=== PATIENT | female | born 1995 | race American Indian/Alaskan Native ===

== ENCOUNTER 2017-12-08 03:52 | Inpatient (IN) | payer MEDICAID, OTHER ==
[2017-12-08] MEDS ORDERED: BRETHINE SUB-Q PRN ×2 (06:27→09:00)
[2017-12-08] MEDS ORDERED: XYLOCAINE 2% INFILTRATI ONE (06:27)
[2017-12-08] MEDS ORDERED: MINERAL OIL PO PRN ×2 (06:27→08:30)
[2017-12-08] MEDS ORDERED: STADOL IV PRN (06:27)
[2017-12-08] MEDS ORDERED: POLYCILLIN/NS 2 GM/100 ML 2 GM/100 ML BAG IV ONE (06:27)
[2017-12-08] MEDS ORDERED: BRETHINE IVP PRN ×2 (06:27→08:30)
[2017-12-08] MEDS ORDERED: ePHEDrine SULFATE IV PRN ×3 (06:27→09:01)
[2017-12-08] MEDS ORDERED: PITOCin/NS 20 UNIT/1000ML DRIP 20 UNITS/1,000 ML BAG IV SCH ×3 (07:00→17:00)
[2017-12-08 07:24] LABS: Mean Corpuscular HGB Conc 29 % (30-34); Platelet Count 173 K/mm3 (140-440); Red Blood Count 3.98 M/mm3 (3.65-5.03)
[2017-12-08 07:36] LABS: Amphetamine Screen,Urine PRESUMPTIVE NEGATIVE; Benzodiazepines Screen,Urine PRESUMPTIVE NEGATIVE; Cannabinoid Screen,Urine PRESUMPTIVE NEGATIVE; Cocaine Screen,Urine PRESUMPTIVE NEGATIVE; Methadone Screen,Urine PRESUMPTIVE NEGATIVE; Opiate Screen,Urine PRESUMPTIVE NEGATIVE
[2017-12-08] MEDS: NORMOSOL-R PH 7.4 1,000 ML IV SCH ×3 (07:36→18:00)
[2017-12-08 07:37] LABS: Hemoglobin 7.6 gm/dl (10.1-14.3); Mean Corpuscular Hemoglobin 19 pg (28-32); Mean Corpuscular Volume 65 fl (79-97); Red Cell Distribution Width 20.2 % (13.2-15.2)
--- NOTE | 2017-12-08 07:55 | History and Physical Report ---
History of Present Illness Date of examination: 12/08/17 Date of admission: 12/08/17 06:45 Chief complaint: Labor History of present illness: Pt is a 22yo BF EDC 12/06/17; EGA 40 2/7 weeks presents to L&D complaining of a RUC's q 3-4 mins. She did not receive care with this , but care was unremarkable. Past History Past Medical History: no pertinent history Past Surgical History: no surgical history [employer] History: chlamydia, gonorrhea Family/Genetic History: none Social history: no significant social history, single - Obstetrical History Expected Date of Delivery: 12/06/17 Actual Gestation: 40 Week(s) 2 Day(s) : 4 Medications and Allergies Allergies Allergy/AdvReac Type Severity Reaction Status Date / Time No Known Allergies Allergy Verified 01/07/17 07:59 Home Medications Medication Instructions Recorded Confirmed Last Taken Type Vit Calc,Iron,Folic 1 tab PO DAILY 01/07/17 12/08/17 12/07/17 09:00 History [ Vitamins] Active Meds: Active Medications Butorphanol Tartrate (Stadol) 2 mg IV Q2H PRN PRN Reason: Pain , Severe (7-10) Last Admin: 12/08/17 07:34 Dose: 2 mg Ephedrine Sulfate (Ephedrine Sulfate) 10 mg IV Q2M PRN PRN Reason: Hypotension Parenteral Electrolytes (Normosol-R Ph 7.4) 1,000 mls @ 125 mls/hr IV DIRECT RENEE Last Admin: 12/08/17 07:36 Dose: 125 mls/hr Oxytocin/Sodium Chloride (Pitocin/Ns 20 Unit/1000ml Drip) 20 units in 1,000 mls @ 125 mls/hr IV DIRECT RENEE Ampicillin Sodium (Ampicillin/Ns 1 Gm/50 Ml) 1 gm in 50 mls @ 100 mls/hr IV Q4H RENEE; Protocol Mineral Oil (Mineral Oil) 30 ml PO QHS PRN PRN Reason: Constipation Terbutaline Sulfate (Brethine) 0.25 mg SUB-Q ONCE PRN PRN Reason: Hyperstimulation/Hypertonicity Terbutaline Sulfate (Brethine) 0.25 mg IVP ONCE PRN PRN Reason: Hyperstimulation/Hypertonicity Review of Systems All systems: negative - Vital Signs Vital signs: Vital Signs Pulse Pulse Ox 91 H 100 12/08/17 04:13 12/08/17 04:13 Temp Pulse Resp BP Pulse Ox 98.9 F 113 H 18 114/74 98 12/08/17 04:16 12/08/17 07:52 12/08/17 04:16 12/08/17 07:48 12/08/17 07:52 - Physical Exam Breasts: Positive: deferred Cardiovascular: Regular rate Lungs: Positive: Clear to auscultation Abdomen: Positive: normal appearance, soft Genitourinary (Female): Positive: normal external genitalia Vagina: Positive: normal moisture Uterus: Positive: enlarged Extremities: Positive: normal - Obstetrical FHR: category 1 Uterine Contraction Monitor Mode: External Cervical Dilatation: 4.5 (per nurse) Cervical Effacement Percentage: 60 (per nurse) station: -2 Uterine Contraction Pattern: Regular Uterine Tone Measurement Phase: Contraction Uterine Contraction Intensity: Moderate Results Result Diagrams: 12/08/17 06:40 Abnormal lab results 12/08/17 Range/Units 06:40 WBC 12.4 H (4.5-11.0) K/mm3 Hgb 7.6 L (10.1-14.3) gm/dl Hct 26.0 L (30.3-42.9) % MCV 65 L (79-97) fl MCH 19 L (28-32) pg MCHC 29 L (30-34) % RDW 20.2 H (13.2-15.2) % All other labs normal. Assessment and Plan - Patient Problems (1) 40 weeks gestation of Onset Date: 12/08/17 Current Visit: No Status: Acute Plan to address problem: A: IUP @ 40 2/7 weeks in labor No care Anemia Unknown GBS P: Admit to L&D for expectant vaginal delivery IV Ampicillin (2) Anemia affecting Onset Date: 12/08/17 Current Visit: No Status: Acute Qualifiers: Trimester: third trimester Qualified Code(s): O99.013 - Anemia complicating , third trimester (3) No care in current Onset Date: 12/08/17 Current Visit: No Status: Acute
[2017-12-08] MEDS ORDERED: SUBLIMAZE IV PRN ×2 (07:59→09:00)
[2017-12-08] MEDS ORDERED: ZOFRAN IV PRN ×2 (08:30→16:39)
[2017-12-08] MEDS ORDERED: NARCAN 0.4 MG/1 ML IV PRN (08:30)
[2017-12-08] MEDS ORDERED: PITOCin/NS 30 UNIT/500ML 30 UNITS/500 ML BAG IV SCH (08:30)
[2017-12-08] MEDS ORDERED: NORMOSOL-R PH 7.4 1,000 ML IV SCH (08:30)
[2017-12-08] MEDS ORDERED: XYLOCAINE 2% INFILTRATI NR (09:00)
[2017-12-08] MEDS ORDERED: NARCAN 2 MG/2 ML IV PRN (09:01)
--- NOTE | 2017-12-08 09:01 | Anesthesia Consultation ---
Anesthesia Consult and Med Hx Date of service: 12/08/17 - Airway Anesthetic Teeth Evaluation: Good ROM Head & Neck: Adequate Mental/Hyoid Distance: Adequate Mallampati Class: Class II Intubation Access Assessment: Probably Good - Pre-Operative Health Status ASA Pre-Surgery Classification: ASA2 - Pulmonary Hx Smoking: Yes Hx Asthma: No COPD: No Hx Pneumonia: No - Cardiovascular System Hx Hypertension: No - Central Nervous System Hx Seizures: No Hx Psychiatric Problems: No - Endocrine Hx Renal Disease: No Hx End Stage Renal Disease: No Hx Hypothyroidism: No Hx Hyperthyroidism: No - Hematic Hx Anemia: No Hx Sickle Cell Disease: No - Other Systems Hx Alcohol Use: No
[2017-12-08] MEDS ORDERED: fentaNYL-BUPIV 2 MCG/ML-0.125% 200 MCG/100 ML BAG EPIDURAL SCH (10:00)
[2017-12-08] MEDS ORDERED: AMPICILLIN/NS 1 GM/50 ML 1 GM/50 ML BAG IV SCH (12:00)
--- NOTE | 2017-12-08 16:38 | Procedure Note ---
OB Delivery Note - Delivery Date of Delivery: 12/08/17 Surgeon: THERESA MCCRACKEN Estimated blood loss: 100cc - Vaginal Delivery presentation: vertex Delivery position: OA Intrapartum events: no care Delivery induction: none Delivery augmentation: rupture of membranes, pitocin Delivery monitor: external FHT, external uterine Route of delivery: Delivery placenta: spontaneous Delivery cord: 3 umbilical vessels Episiotomy: none Delivery laceration: none Anesthesia: epidural Delivery comments: delivered and placed on Mom's chest for [id number] bonding and delayed cord clamping. - Infant A at 1 minute: 8 at 5 minutes: 9 Gender: Male (3552gms)
[2017-12-08] MEDS ORDERED: MILK OF MAGNESIA PO PRN (16:39)
[2017-12-08] MEDS ORDERED: BENADRYL PO PRN (16:39)
[2017-12-08] MEDS ORDERED: LANSINOH TP PRN (16:39)
[2017-12-08] MEDS ORDERED: TUCKS PAD TP PRN (16:39)
[2017-12-08] MEDS ORDERED: PHENERGAN PR PRN (16:39)
[2017-12-08] MEDS ORDERED: TYLENOL PO PRN (16:39)
[2017-12-08] MEDS ORDERED: PHENERGAN PO PRN (16:39)
[2017-12-08] MEDS ORDERED: DULCOLAX PR PRN (16:39)
[2017-12-08] MEDS ORDERED: SODIUM CHLORIDE FLUSH SYRINGE 10 ML IV SCH (17:00)
[2017-12-08] MEDS: MOTRIN PO SCH (19:15)
[2017-12-08] MEDS: COLACE PO SCH (21:42)
[2017-12-08] MEDS: FEOSOL PO SCH (21:43)
[2017-12-09] MEDS: MOTRIN PO SCH ×5 (01:07→23:16)
[2017-12-09] MEDS: NORCO 5/325 PO PRN ×2 (01:07→08:45)
[2017-12-09] MEDS ORDERED: BOOSTRIX IM ONE (06:00)
[2017-12-09 07:02] LABS: Hematocrit 23.3 % (30.3-42.9); Hemoglobin 6.9 gm/dl (10.1-14.3)
--- NOTE | 2017-12-09 08:30 | Progress Note ---
Assessment and Plan - Patient Problems (1) 40 weeks gestation of Onset Date: 12/08/17 Current Visit: No Status: Resolved (2) Anemia affecting Onset Date: 12/08/17 Current Visit: No Status: Chronic Qualifiers: Trimester: third trimester Qualified Code(s): O99.013 - Anemia complicating , third trimester (3) No care in current Onset Date: 12/08/17 Current Visit: No Status: Resolved (4) (normal spontaneous vaginal delivery) Onset Date: 12/09/17 Current Visit: Yes Status: Resolved Plan to address problem: A: S/P - PPD #1 Doing well Asymptomatic anemia - stable P: May go home tomorrow. Subjective - Subjective Date of service: 12/09/17 Principal diagnosis: s/p - PPD #1 Interval history: Pt is feeling well without complaints. Bleeding improved. Denies dizziness or SOB. Patient reports: appetite normal, voiding normally, pain well controlled, flatus , ambulating normally, no dizzy ambulation, no nauseated [place]: doing well, nursing well Objective - Vital Signs Latest vital signs: Vital Signs Temp Pulse Resp BP BP Pulse Ox 12/09/17 00:00 98.5 F 92 H 18 125/70 12/08/17 18:45 98.7 F 90 16 116/75 12/08/17 17:43 85 99 12/08/17 17:41 96 H 123/70 12/08/17 17:38 83 99 12/08/17 17:33 86 100 12/08/17 17:28 77 99 12/08/17 17:25 81 129/82 12/08/17 17:23 100 H 98 12/08/17 17:20 77 L 12/08/17 17:17 82 100 12/08/17 17:13 93 H 81 L 12/08/17 17:12 87 99 12/08/17 17:10 93 H 128/79 12/08/17 17:07 95 H 100 12/08/17 17:03 87 78 L 12/08/17 16:57 95 H 100 12/08/17 16:55 90 123/79 12/08/17 16:53 86 100 12/08/17 16:48 101 H 99 12/08/17 16:42 90 100 03/19/18 16:38 103 H 100 03/19/18 16:33 78 87 03/19/18 16:28 82 99 03/19/18 16:23 89 100 03/19/18 16:17 92 H 100 03/19/18 16:12 92 H 100 03/19/18 16:08 93 H 100 03/19/18 16:03 105 H 100 03/19/18 15:58 81 100 03/19/18 15:53 111 H 100 03/19/18 15:47 94 H 100 03/19/18 15:43 82 100 03/19/18 15:37 87 100 03/19/18 15:32 77 100 03/19/18 15:28 88 100 03/19/18 15:23 74 100 03/19/18 15:18 73 100 03/19/18 15:12 82 100 03/19/18 15:07 97 H 100 03/19/18 15:03 71 100 03/19/18 15:01 85 117/69 03/19/18 14:57 85 100 03/19/18 14:54 85 88 03/19/18 14:52 83 100 03/19/18 14:48 88 100 03/19/18 14:43 89 100 03/19/18 14:37 94 H 100 03/19/18 14:33 96 H 100 03/19/18 14:28 93 H 100 03/19/18 14:23 81 100 03/19/18 14:17 90 100 03/19/18 14:12 78 100 03/19/18 14:07 87 100 03/19/18 14:02 70 100 03/19/18 13:58 80 100 03/19/18 13:52 77 100 03/19/18 13:47 82 100 03/19/18 13:42 86 100 03/19/18 13:38 78 100 03/19/18 13:32 78 100 03/19/18 13:28 88 100 03/19/18 13:22 79 100 03/19/18 13:18 73 100 03/19/18 13:12 90 100 03/19/18 13:07 82 100 03/19/18 13:02 81 100 03/19/18 12:58 90 93 03/19/18 12:57 90 99 03/19/18 12:52 79 100 03/19/18 12:47 74 100 03/19/18 12:42 85 100 03/19/18 12:37 87 100 03/19/18 12:32 74 100 03/19/18 12:27 71 100 03/19/18 12:22 72 100 03/19/18 12:17 71 100 03/19/18 12:12 80 100 03/19/18 12:07 81 100 03/19/18 12:02 86 100 03/19/18 11:57 83 100 03/19/18 11:52 85 100 03/19/18 11:47 93 H 100 03/19/18 11:42 90 100 03/19/18 11:37 89 100 03/19/18 11:32 76 100 03/19/18 11:27 82 100 03/19/18 11:22 83 100 03/19/18 11:17 76 100 03/19/18 11:12 78 100 03/19/18 11:07 85 100 03/19/18 11:02 78 100 03/19/18 10:57 84 100 03/19/18 10:52 85 100 03/19/18 10:47 80 100 03/19/18 10:46 87 111/63 03/19/18 10:42 82 98 03/19/18 10:37 84 99 03/19/18 10:34 84 105/62 03/19/18 10:32 95 H 98 03/19/18 10:27 93 H 98 03/19/18 10:22 93 H 99 03/19/18 10:17 88 99 03/19/18 10:12 102 H 100 03/19/18 10:07 93 H 100 03/19/18 10:05 96 H 88 03/19/18 10:02 85 99 03/19/18 09:57 87 100 03/19/18 09:52 83 100 03/19/18 09:47 87 100 03/19/18 09:46 97 H 95/52 03/19/18 09:42 87 99 03/19/18 09:37 90 100 03/19/18 09:35 88 108/62 03/19/18 09:32 88 100 03/19/18 09:28 85 105/61 03/19/18 09:27 88 100 03/19/18 09:22 85 99 03/19 09:19 88 116/71 12/08/17 09:17 93 H 106/66 100 12/08/17 09:12 94 H 100 12/08/17 09:10 97 H 110/75 12/08/17 09:09 97 H 119/73 12/08/17 09:07 93 H 100 12/08/17 09:02 90 99 12/08/17 08:59 103 H 94 12/08/17 08:57 89 99 12/08/17 08:52 94 H 100 12/08/17 08:47 107 H 100 12/08/17 08:42 95 H 99 12/08/17 08:37 95 H 98 12/08/17 08:32 97 H 99 Intake and Output 12/08/17 12/09/17 12/09/17 22:59 06:59 14:59 Intake Total 1240 240 Output Total 1600 400 Balance -360 -160 Intake: IV 1000 Normosol-R pH 7.4 1,000 1000 ml @ 125 mls/hr IV DIRECT RENEE Rx#:[id number] Oral 240 240 Output: Urine 1600 400 Indwelling Catheter 800 Void 800 400 Other: Total, Intake Amount 240 240 Total, Output Amount 800 400 Estimated Blood Loss 100 - Exam Breasts: Present: deferred Cardiovascular: Present: Regular rate Lungs: Present: Clear to auscultation Abdomen: Present: normal appearance, soft Uterus: Present: normal, firm, fundal height below umbilicus Extremities: Present: normal - Labs Labs: Abnormal lab results 12/09/17 Range/Units 06:04 Hgb 6.9 L (10.1-14.3) gm/dl Hct 23.3 L (30.3-42.9) % Laboratory Tests 12/08/17 12/08/17 12/08/17 06:40 06:40 06:40 WBC 12.4 H RBC 3.98 Hgb 7.6 L Hct 26.0 L MCV 65 L MCH 19 L MCHC 29 L RDW 20.2 H Plt Count 173 Urine Opiates Screen Urine Methadone Screen Ur Barbiturates Screen Ur Phencyclidine Scrn Ur Amphetamines Screen U Benzodiazepines Scrn Urine Cocaine Screen U Marijuana (THC) Screen Drugs of Abuse Note RPR Hep Bs Antigen Non-reactive HIV 1&2 Antibody Rapid HIV P24 Antigen Rubella IgG Antibody Immune Blood Type Antibody Screen 12/08/17 12/08/17 12/08/17 06:40 06:40 06:40 WBC RBC Hgb Hct MCV MCH MCHC RDW Plt Count Urine Opiates Screen Presumptive negative Urine Methadone Screen Presumptive negative Ur Barbiturates Screen Presumptive negative Ur Phencyclidine Scrn Presumptive negative Ur Amphetamines Screen Presumptive negative U Benzodiazepines Scrn Presumptive negative Urine Cocaine Screen Presumptive negative U Marijuana (THC) Screen Presumptive negative Drugs of Abuse Note Disclamer RPR Nonreactive Hep Bs Antigen HIV 1&2 Antibody Rapid HIV P24 Antigen Rubella IgG Antibody Blood Type O POSITIVE Antibody Screen Negative 12/08/17 12/09/17 06:40 06:04 WBC RBC Hgb 6.9 L Hct 23.3 L MCV MCH MCHC RDW Plt Count Urine Opiates Screen Urine Methadone Screen Ur Barbiturates Screen Ur Phencyclidine Scrn Ur Amphetamines Screen U Benzodiazepines Scrn Urine Cocaine Screen U Marijuana (THC) Screen Drugs of Abuse Note RPR Hep Bs Antigen HIV 1&2 Antibody Rapid Non react HIV P24 Antigen Non react Rubella IgG Antibody Blood Type Antibody Screen
--- NOTE | 2017-12-09 10:13 | Discharge Summary ---
Providers - Providers Date of Admission: 12/08/17 06:45 Date of discharge: 12/10/17 Attending physician: THERESA MCCRACKEN Primary care physician: THERESA MCCRACKEN Hospitalization Reason for admission: active labor, IUP at term, other (No care) Delivery: Episiotomy: none Laceration: none Other procedures: none complications: none Discharge diagnosis: IUP at term delivered baby: male Hospital course: Unremarkable. Condition at discharge: Good Disposition: DC-01 TO HOME OR SELFCARE - Discharge Diagnoses (1) 40 weeks gestation of Status: Resolved (2) Anemia affecting Status: Chronic Qualifiers: Trimester: third trimester Qualified Code(s): O99.013 - Anemia complicating , third trimester (3) No care in current Status: Resolved (4) (normal spontaneous vaginal delivery) Status: Resolved Plan - Discharge Medications Prescriptions: Ferrous Sulfate [Feosol 325 MG tab] 325 mg PO BID #60 tablet Ibuprofen [Motrin 600 MG tab] 600 mg PO Q6HR #30 tablet Vit-Fe Fumar-FA [ Vitamin] 1 each PO QDAY #30 tablet - Provider Discharge Summary Activity: routine, no sex for 6 weeks, no heavy lifting 4 weeks, no strenuous exercise Diet: routine Instructions: routine Additional instructions: [] Smoking cessation referral if applicable(refer to patient education folder for contact #) [] Refer to [facility]'s [facility] Booklet Call your doctor immediately for: * Fever > 100.5 * Heavy vaginal bleeding ( >1 pad per hour) * Severe persistent headache * Shortness of breath * Reddened, hot, painful area to leg or breast * Drainage or odor from incision. * Keep incision clean and dry at all times and follow doctor's instructions regarding bathing/showering - Follow up plan Follow up: THERESA MCCRACKEN MD [Primary Care Provider] - 6 Weeks
[2017-12-09] MEDS: FEOSOL PO SCH ×2 (11:44→23:17)
[2017-12-09] MEDS: PRENATAL VITAMIN PO SCH (11:44)
[2017-12-09] MEDS: COLACE PO SCH ×2 (11:44→23:17)
[2017-12-09] MEDS ORDERED: M-M-R II VACCINE SUB-Q ONE (16:39)
[2017-12-10] MEDS: MOTRIN PO SCH (05:16)
[2017-12-10] MEDS: COLACE PO SCH (10:09)
[2017-12-10] MEDS: FEOSOL PO SCH (10:09)
[2017-12-10] MEDS: PRENATAL VITAMIN PO SCH (10:09)
[2017-12-10 11:12] VITALS: BP 112/76
== END 2017-12-10 16:40 | disposition home or self-care (01) | DRG 775 ==
LOC: TRG 03:52 → LD 06:45 → OB 18:59
PROVIDERS: ADMIT Obstetrics & Gynecology; ATTEND Obstetrics & Gynecology
PROC: 10E0XZZ Delivery of Products of Conception, External Approach (ICD-10-PCS; principal; 2017-12-08)
PROC: 3E0R3BZ Introduction of Anesthetic Agent into Spinal Canal, Percutaneous Approach (ICD-10-PCS; 2017-12-08)
PROC: 00HU33Z Insertion of Infusion Device into Spinal Canal, Percutaneous Approach (ICD-10-PCS; 2017-12-08)
DX: O99.02 Anemia complicating childbirth (principal); D64.9 Anemia, unspecified; Z3A.40 40 weeks gestation of pregnancy; Z37.0 Single live birth
CPT/HCPCS: 36415; 80307; 85014; 85018; 85027; 86592; 86706; 86762; 86850; 86900; 86901; 87806; 99211; G0463; J0290; J0595; J2590